=== PATIENT | male | born 1950 ===

== ENCOUNTER 2023-10-15 09:30 | Day surgery (SDC) | payer OTHER ==
[2023-10-15] MEDS ORDERED: DIPHENHYDRAMINE HCL 50 MG/ML VIAL 1ML IV ONE (13:45)
[2023-10-15] MEDS ORDERED: MIDAZOLAM HCL 2 MG/2 ML VIAL IV ONE (13:45)
[2023-10-15] MEDS ORDERED: fentaNYL CITRATE 50 MCG/ML AMPUL IV ONE (13:45)
== END 2023-10-15 15:35 | disposition home or self-care (01) ==
LOC: AMB-ENDOS 09:30
PROVIDERS: ATTEND Internal Medicine Gastroenterology
DX: R10.13 Epigastric pain (principal); K29.70 Gastritis, unspecified, without bleeding; K63.5 Polyp of colon; Z88.0 Allergy status to penicillin